=== PATIENT | female | born 1990 | race Two or more races ===

== ENCOUNTER 2022-02-24 14:12 | Emergency (ER) | payer OTHER ==
[2022-02-24 14:33] VITALS: BP 119/81; PULSE 72; TEMP 98; BMI 21.2
[2022-02-24 15:13] LABS: URINE APPEARANCE CLEAR; URINE BILIRUBIN NEGATIVE (NEGATIVE); URINE COLOR YELLOW; URINE GLUCOSE (UA) NEGATIVE (NEGATIVE); URINE KETONE 1+ (NEGATIVE); URINE LEUK ESTERASE NEGATIVE (NEGATIVE); URINE NITRITE NEGATIVE (NEGATIVE); URINE PROTEIN NEGATIVE (NEGATIVE); URINE UROBILINOGEN 0.2 mg/dL (0.2-1.0)
[2022-02-24] MEDS ORDERED: ACETAMINOPHEN 325 MG TABLET (FP) PO ONE (15:17)
[2022-02-24 15:18] LABS: HCG,QUALITATIVE URINE Positive
[2022-02-24] MEDS ORDERED: ACETAMINOPHEN 325 MG TABLET (FP) ONE (15:20)
[2022-02-24 15:38] LABS: BASO % 0.4 % (0-2.0); EOS % 0.4 % (0-4.5); HEMATOCRIT 42.2 % (32.4-45.2); HEMOGLOBIN 13.8 GM/dL (10.7-15.3); LYMPH % 23.4 % (8-40); MCHC 32.7 g/dl (32.0-36.0); MEAN CELL VOLUME 94.7 fl (80-96); MEAN PLT VOLUME 10.6 fl (7.5-11.1); MONO % 7.1 % (3.8-10.2); NEUT % 68.7 % (42.8-82.8); PLATELET COUNT 172 10^3/uL (134-434); RBC 4.46 M/mm3 (3.60-5.2); RDW 13.8 % (11.6-15.6); WHITE BLOOD COUNT 8.6 K/mm3 (4.0-10.0)
[2022-02-24 15:55] LABS: CALCIUM 9.4 mg/dL (8.5-10.1)
[2022-02-24 15:56] LABS: ALBUMIN 3.9 g/dl (3.4-5.0); BLOOD UREA NITROGEN 16.6 mg/dL (7-18)
[2022-02-24 15:59] LABS: CREATININE 0.7 mg/dL (0.55-1.3)
[2022-02-24 16:01] LABS: BILIRUBIN,TOTAL 0.5 mg/dL (0.2-1); TOT PROT 7.7 g/dl (6.4-8.2)
== END 2022-02-24 18:44 | disposition home or self-care (01) ==
LOC: JER 14:12 → JERFT 14:12
DX: O03.9 Complete or unspecified spontaneous abortion without complication (principal); Z3A.00 Weeks of gestation of pregnancy not specified
CPT/HCPCS: 36415; 76817-TC; 80053; 81003; 84702; 84703; 85025; 87070; 87086; 87205; 99284-25

== ENCOUNTER 2022-02-26 13:05 | Emergency (ER) | payer OTHER ==
[2022-02-26 13:14] VITALS: BP 133/88; PULSE 80; TEMP 98; BMI 21.2
== END 2022-02-26 16:13 | disposition home or self-care (01) ==
LOC: JER 13:05 → JERFT 13:05
DX: R79.89 Other specified abnormal findings of blood chemistry (principal); Z32.00 Encounter for pregnancy test, result unknown
CPT/HCPCS: 36415; 76817-TC; 84144; 84702; 99284-25

== ENCOUNTER → 2022-03-09 | Emergency (ER) | payer OTHER ==
[2022-03-09 16:20] VITALS: BP 107/72; PULSE 72; TEMP 98.4; BMI 20.7
== END | disposition left against medical advice (07) ==
LOC: JERFT 16:06
DX: O99.891 Other specified diseases and conditions complicating pregnancy (principal); Z3A.00 Weeks of gestation of pregnancy not specified
CPT/HCPCS: 36415; 76817-TC; 84702; 84703; 99284-25

== ENCOUNTER 2022-04-02 18:13 | Emergency (ER) | payer OTHER ==
[2022-04-02 18:33] VITALS: BP 118/80; PULSE 75; TEMP 98.5; BMI 21.1
[2022-04-02] MEDS ORDERED: SODIUM CHLORIDE 0.9% 500 ML INFUS.BAG IV ONE (18:58)
[2022-04-02] MEDS ORDERED: ACETAMINOPHEN 1000 MG/100 ML BAG IVPB ONE (18:58)
[2022-04-02] MEDS ORDERED: ACETAMINOPHEN INJECTION 100 ML IVPB ONE (19:18)
[2022-04-02 19:32] LABS: BASO % 0.3 % (0-2.0); EOS % 1.5 % (0-4.5); HEMATOCRIT 37.9 % (32.4-45.2); LYMPH % 21.4 % (8-40); MCH 31.8 pg (25.7-33.7); MCHC 34.2 g/dl (32.0-36.0); MEAN PLT VOLUME 10.5 fl (7.5-11.1); NEUT % 63.8 % (42.8-82.8); PLATELET COUNT 142 10^3/uL (134-434); RBC 4.08 M/mm3 (3.60-5.2); RDW 13.7 % (11.6-15.6); WHITE BLOOD COUNT 6.4 K/mm3 (4.0-10.0)
[2022-04-02 19:33] LABS: HCG,QUALITATIVE URINE Positive
[2022-04-02 19:34] LABS: URINE APPEARANCE CLEAR; URINE BILIRUBIN NEGATIVE (NEGATIVE); URINE COLOR YELLOW; URINE GLUCOSE (UA) NEGATIVE (NEGATIVE); URINE KETONE NEGATIVE (NEGATIVE); URINE LEUK ESTERASE NEGATIVE (NEGATIVE); URINE NITRITE NEGATIVE (NEGATIVE); URINE PROTEIN NEGATIVE (NEGATIVE); URINE UROBILINOGEN 0.2 mg/dL (0.2-1.0)
[2022-04-02 19:51] LABS: CALCIUM 9.5 mg/dL (8.5-10.1)
[2022-04-02 19:52] LABS: ALBUMIN 3.6 g/dl (3.4-5.0); BLOOD UREA NITROGEN 10.8 mg/dL (7-18)
[2022-04-02 19:55] LABS: CREATININE 0.7 mg/dL (0.55-1.3)
[2022-04-02 19:57] LABS: BILIRUBIN,TOTAL 0.2 mg/dL (0.2-1); TOT PROT 7.5 g/dl (6.4-8.2)
== END 2022-04-02 21:20 | disposition home or self-care (01) ==
LOC: JER 18:13 → JERFT 18:13
PROC: 3E0333Z Introduction of Anti-inflammatory into Peripheral Vein, Percutaneous Approach (ICD-10-PCS; principal; 2022-04-02)
DX: O03.9 Complete or unspecified spontaneous abortion without complication (principal)
CPT/HCPCS: 36415; 76817-TC; 80053; 81003; 84702; 84703; 85025; 87086; 96374; 99284-25